=== PATIENT | male | born 1985 | race Caucasian/White ===

== ENCOUNTER 2019-07-01 17:08 | Emergency (ER) | payer MEDICARE, OTHER ==
[~2019-07-01] VITALS: Ht 167.6 cm; Wt 104.3 kg
--- NOTE | 2019-07-01 17:20 | NUR ---
PT AAOX4. [facility] TO ER, C/O HEARING VOICES, PER PATIENT "I AM HEARING A WOMAN TELLING ME I LOVE HER AND WANTS ME TO GO TO HER HOUSE" +SI, -HI. WANTS TO GO VOLUNTARY PSYCH
--- NOTE | 2019-07-01 17:26 | NUR ---
URINE COLLECTED AND SENT TO LAB
--- NOTE | 2019-07-01 17:26 | NUR ---
SCRIPT SUPERVISOR AT BEDSIDE FOR LAB COLELCTION
--- NOTE | 2019-07-01 17:26 | NUR ---
[facility]
[2019-07-01 17:33] LABS: APPEARANCE,URINE Clear (CLEAR); BASOPHILS # (AUTO) 0.1 /CMM (0.0-0.2); BASOPHILS % (AUTO) 0.9 % (0.0-2.0); BILIRUBIN,URINE Negative (NEGATIVE); BLOOD, URINE Negative Ery/uL (NEGATIVE); COLOR,URINE Yellow (YELLOW); HEMATOCRIT 42 % (39-51); HEMOGLOBIN 14.3 g/dL (13.5-17.5); KETONES,URINE Negative (NEGATIVE); LEUKOCYTE ESTERASE ,URINE Negative (NEGATIVE); LYMPHOCYTES # (AUTO) 1.5 /CMM (0.8-4.8); LYMPHOCYTES % (AUTO) 13.5 % (20.0-44.0); MEAN CORPUSCULAR HGB CONC 34 g/dl (31.0-36.0); MEAN CORPUSCULAR VOLUME 91 fL (80-96); MONOCYTES # (AUTO) 0.8 /CMM (0.1-1.30); MONOCYTES % (AUTO) 7.2 % (2.0-12.0); NEUTROPHILS # (AUTO) 8.6 /CMM (1.8-8.9); NEUTROPHILS % (AUTO) 77.4 % (43.0-81.0); NITRITE, URINE Negative (NEGATIVE); PLATELET COUNT (AUTO) 365 /CMM (150-450); PROTEIN,URINE Trace mg/dl (NEGATIVE); RED BLOOD CELL COUNT(AUTO) 4.57 MIL/uL (4.5-6.0); UGLUCOSE Negative (NEGATIVE); UROBILINOGEN,URINE 0.2 EU/dL (0.2); WHITE BLOOD COUNT (AUTO) 11.1 K/uL (4.3-11.0)
[2019-07-01 17:42] LABS: CALCIUM, SERUM 9.1 mg/dL (8.5-10.1); CARBON DIOXIDE 26 mmol/L (21-32); CHLORIDE 101 mmol/L (98-107); GLUCOSE 105 mg/dL (74-106); POTASSIUM 3.9 mmol/L (3.5-5.1); SODIUM SERUM 138 mmol/L (136-145); UREA NITROGEN, BLOOD 20 mg/dL (7-18)
[2019-07-01 17:44] LABS: BACTERIA,URINE Rare /HPF (None Seen); SQUAMOUS EPITHELIAL CELL,UR None Seen /HPF (None Seen)
[2019-07-01 17:48] LABS: ALANINE AMINOTRANSFERASE 40 U/L (12-78); ALBUMIN 3.7 g/dL (3.4-5.0); ALCOHOL, BLOOD < 3 mg/dL (0-0); ALKALINE PHOSPHATASE 109 U/L (46-116); ASPARTATE AMINOTRANSFERASE 26 U/L (15-37); BILIRUBIN,DIRECT 0.1 mg/dL (0.0-0.2); BILIRUBIN,TOTAL 0.3 mg/dL (0.2-1.0); TOTAL PROTEIN, SERUM 7.8 g/dL (6.4-8.2)
[2019-07-01 17:49] LABS: SALICYLATE < 2.8 mg/dL (2.8-20.0)
--- NOTE | 2019-07-01 17:59 | NUR ---
SITTER AT BEDSIDE. PT EASILY AROUSED, COMFORTABLE.
[2019-07-01 19:28] VITALS: BP 145/79
--- NOTE | 2019-07-01 19:29 | NUR ---
Patient is resting comfortably in bed. Easily aroused. VSS.
--- NOTE | 2019-07-01 19:31 | NUR ---
PINKY AT BEDSIDE
[2019-07-01] MEDS ORDERED: LORAZEPAM 1 MG TABLET ONE (19:43)
[2019-07-01] MEDS ORDERED: LORAZEPAM 1 MG TABLET PO ONE (20:00)
--- NOTE | 2019-07-01 20:26 | NUR ---
PAT CALLED FOR TRANSPORT ETA [id number]. TRIP# [id number]
--- NOTE | 2019-07-01 21:14 | NUR ---
REPORT GIVEN TO BRICE COPPOLA FOR [facility]
--- NOTE | 2019-07-01 21:35 | NUR ---
REPORT GIVEN TO TAYA RÍOS FROM [facility]
== END 2019-07-01 21:49 | disposition short-term general hospital (02) ==
LOC: ER 17:14
DX: F29 Unspecified psychosis not due to a substance or known physiological condition (principal); J02.8 Acute pharyngitis due to other specified organisms; B97.89 Other viral agents as the cause of diseases classified elsewhere; J06.9 Acute upper respiratory infection, unspecified; F32.9 Major depressive disorder, single episode, unspecified; R00.0 Tachycardia, unspecified; Z59.0 Homelessness; Z04.6 Encounter for general psychiatric examination, requested by authority
CPT/HCPCS: 36415; 80048; 80076; 80305; 80307; 80329; 81001; 85025; 87070; 87880; 99285; G0480; 81000-TC; 86403-TC

== ENCOUNTER 2020-04-14 04:44 | Emergency (ER) | payer BC, OTHER ==
[~2020-04-14] VITALS: Ht 167.6 cm; Wt 122.5 kg
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
--- NOTE | 2020-04-14 05:13 | NUR ---
URINE COLLECTED AND SENT TO LAB
--- NOTE | 2020-04-14 06:06 | NUR ---
Patient discharged to home in stable condition. Written and verbal after care instructions given. Patient verbalizes understanding of instruction.
[2020-04-14 06:14] VITALS: BP 133/90
== END 2020-04-14 06:29 | disposition home or self-care (01) ==
LOC: ER 04:50
DX: R00.2 Palpitations (principal); F32.9 Major depressive disorder, single episode, unspecified; Z59.0 Homelessness

== ENCOUNTER 2020-10-10 07:47 | Emergency (ER) | payer OTHER ==
[~2020-10-10] VITALS: Ht 165.1 cm; Wt 133.8 kg
--- NOTE | 2020-10-10 07:59 | NUR ---
The patient is [id number], +SI. Patient denies any specific plan. Alert and oriented x4. Denies any plan. In room air and denies SOB. Respiration regular and unlabored. Sitter at the bedside. Will continue to monitor the patient.
[2020-10-10 08:29] LABS: BILIRUBIN,URINE NEGATIVE (NEGATIVE); COLOR,URINE YELLOW (YELLOW); LEUKOCYTE ESTERASE ,URINE NEGATIVE (NEGATIVE); NITRITE, URINE NEGATIVE (NEGATIVE); PH,URINE 5.5 (5.0-8.0); PROTEIN,URINE 30 mg/dl (NEGATIVE); UGLUCOSE NEGATIVE (NEGATIVE); UROBILINOGEN,URINE 0.2 EU/dL (0.2)
[2020-10-10 08:45] LABS: ALANINE AMINOTRANSFERASE 61 U/L (12-78); ALBUMIN 3.7 g/dL (3.4-5.0); ALCOHOL, BLOOD < 3 mg/dL (0-0); ALKALINE PHOSPHATASE 99 U/L (46-116); ASPARTATE AMINOTRANSFERASE 32 U/L (15-37); BILIRUBIN,DIRECT 0.1 mg/dL (0.0-0.2); BILIRUBIN,TOTAL 0.5 mg/dL (0.2-1.0); CALCIUM, SERUM 8.6 mg/dL (8.5-10.1); CARBON DIOXIDE 28 mmol/L (21-32); CHLORIDE 103 mmol/L (98-107); CREATININE 0.8 mg/dL (0.6-1.3); GLUCOSE 118 mg/dL (74-106); POTASSIUM 4.3 mmol/L (3.5-5.1); SODIUM SERUM 138 mmol/L (136-145); TOTAL PROTEIN, SERUM 7.3 g/dL (6.4-8.2); UREA NITROGEN, BLOOD 19 mg/dL (7-18)
[2020-10-10 08:58] LABS: ACETAMINOPHEN 0 ug/ml (10-30)
[2020-10-10 09:00] LABS: BASOPHILS % (AUTO) 0.2 % (0.0-2.0); EOSINOPHILS % (AUTO) 2.5 % (0.0-6.0); HEMATOCRIT 44 % (39-51); HEMOGLOBIN 14.3 g/dL (13.5-17.5); LYMPHOCYTES # (AUTO) 1.1 /CMM (0.8-4.8); MEAN CORPUSCULAR HGB CONC 33 g/dl (31.0-36.0); MEAN CORPUSCULAR VOLUME 88 fL (80-96); MONOCYTES # (AUTO) 0.9 /CMM (0.1-1.30); MONOCYTES % (AUTO) 7.8 % (2.0-12.0); NEUTROPHILS # (AUTO) 8.7 /CMM (1.8-8.9); NEUTROPHILS % (AUTO) 79.5 % (43.0-81.0); PLATELET COUNT (AUTO) 262 /CMM (150-450); RED BLOOD CELL COUNT(AUTO) 4.98 MIL/uL (4.5-6.0)
[2020-10-10 09:04] LABS: RBC,URINE NONE SEEN /HPF (0-2); SQUAMOUS EPITHELIAL CELL,UR Rare /HPF (None Seen); WBC,URINE 0-2 /HPF (0-3)
[2020-10-10 09:05] LABS: BACTERIA,URINE Rare /HPF (None Seen)
--- NOTE | 2020-10-10 09:31 | NUR ---
LAB CALLED, COVID IS NEGATIVE
--- NOTE | 2020-10-10 10:10 | NUR ---
FAXED CLINICALS TO [facility]
--- NOTE | 2020-10-10 11:15 | NUR ---
CALLED [facility] AND SPOKE TO MINDI "IT IS A FULL HOUSE AND THEY CANNOT ACCEPT ANY MORE PATIENTS. THEY WILL NOT DISCHARGE ANYONE TODAY"
--- NOTE | 2020-10-10 11:17 | NUR ---
CALLED [facility] INTAKE [phone] AND SPOKE WITH BEBO "WILL CALL BACK WHEN THERE ARE ANY OPENINGS"
[2020-10-10] MEDS ORDERED: ACETAMINOPHEN ES 500 MG TABLET ONE (14:57)
[2020-10-10] MEDS: ACETAMINOPHEN 325 MG TABLET PO ONE (14:59)
[2020-10-10] MEDS ORDERED: OLANZAPINE 5 MG TABLET ONE (19:01)
[2020-10-10] MEDS: OLANZAPINE ZYDIS 5 MG TAB.RAPDIS PO ONE (19:03)
--- NOTE | 2020-10-10 19:19 | NUR ---
FAXED FACESHEET TO [facility]
--- NOTE | 2020-10-10 19:20 | NUR ---
CALLED [facility] FOR BLS TRANSPORT TO [facility], UN[address]. ETA IS 45 MIN
[2020-10-10 20:00] VITALS: BP 136/80
--- NOTE | 2020-10-10 20:11 | NUR ---
PER ART SOCNV INTAKE, PT ACCEPTED AT [facility], [address]
--- NOTE | 2020-10-10 20:11 | NUR ---
REPORT GIVEN TO LOU NORTON AT [facility]
--- NOTE | 2020-10-10 20:12 | NUR ---
TRANSPORT [facility]; [facility] LEFT, ALL BELOGINGS WITH PATIENT. VSS. NAD
== END 2020-10-10 20:13 ==
LOC: ER 07:53
DX: R45.851 Suicidal ideations (principal); Z59.0 Homelessness; Z20.822 Contact with and (suspected) exposure to COVID-19
CPT/HCPCS: 36415; 80048; 80076; 80299; 80307; 80320; 81001; 85025; 87426; 99285; C9803; G0480